=== PATIENT | female | born 1945 | race Caucasian/White ===

== ENCOUNTER → 2017-07-09 | Outpatient (CLI) | payer MEDICARE, OTHER ==
--- NOTE | 2017-07-09 13:49 | MM ---
Reason for exam: screening (asymptomatic). Last mammogram was performed 2 years and 2 months ago. History: Patient is postmenopausal. Family history of breast cancer in maternal aunt at age 70. Physical Findings: A clinical breast exam by your physician is recommended on an annual basis and results should be correlated with mammographic findings. MG 3D Screening Mammo W/Cad Bilateral CC and MLO view(s) were taken. Prior study comparison: April 27, 2015, bilateral MG screening mammo w CAD. July 21, 2013, bilateral digital screening mammo w/CAD. There are scattered fibroglandular densities. Finding: There are typically benign vascular calcifications in both breasts. There is no discrete abnormality. ASSESSMENT: Negative, BI-RAD 1 RECOMMENDATION: Routine screening mammogram of both breasts in 1 year.
== END | disposition home or self-care (01) ==
LOC: RADMAMWWP 09:29
PROVIDERS: ATTEND Obstetrics & Gynecology
DX: Z12.31 Encounter for screening mammogram for malignant neoplasm of breast (principal)
CPT/HCPCS: 77063; G0202

== ENCOUNTER 2019-12-22 17:20 | Inpatient (IN) | payer MEDICARE, OTHER ==
[2019-12-22] MEDS ORDERED: NALOXONE 0.4 MG/ML 1 ML VIAL IV PRN (19:30)
[2019-12-22] MEDS ORDERED: HYDROcodone/APAP 5-325MG 1 EACH TAB PO PRN (19:31)
[2019-12-22] MEDS ORDERED: HYDROmorphone 0.5 MG/0.5 ML SYRINGE IVP PRN (19:31)
[2019-12-22] MEDS ORDERED: ONDANSETRON 4 MG/2 ML VIAL IVP PRN (19:31)
[2019-12-22] MEDS ORDERED: ACETAMINOPHEN TAB 500 MG TAB PO PRN (19:31)
[2019-12-22] MEDS ORDERED: ALPRAZolam 0.25 MG TAB PO PRN (19:31)
[2019-12-22] MEDS ORDERED: TEMAZEPAM 15 MG CAP PO PRN (19:31)
[2019-12-22 20:12] LABS: Anisocytosis Slight; Basophils % (A) 0 %; Eosinophils # (A) 0.2 k/uL (0-0.7); Eosinophils % (A) 3 %; HCT 28.3 % (34.0-46.0); HGB 9.2 gm/dL (11.4-16.0); Lymphocytes # (A) 1.4 k/uL (1.0-4.8); Lymphocytes % (A) 22 %; MCH 29.1 pg (25.0-35.0); MCHC 32.5 g/dL (31.0-37.0); MCV 89.6 fL (80.0-100.0); Monocytes # (A) 0.5 k/uL (0-1.0); Monocytes % (A) 8 %; Neutrophils # (A) 4.3 k/uL (1.3-7.7); Neutrophils % (A) 64 %; Platelet Count 295 k/uL (150-450); RBC 3.15 m/uL (3.80-5.40); RDW 16.8 % (11.5-15.5); WBC 6.7 k/uL (3.8-10.6)
[2019-12-22 20:23] LABS: ALT 28 U/L (4-34); AST 29 U/L (14-36); African American GFR (CKD) >90 (>60 ml/min/1.73 sqM); Albumin 3.8 g/dL (3.5-5.0); Alkaline Phosphatase 77 U/L (38-126); Anion Gap 7 mmol/L; Blood Urea Nitrogen 10 mg/dL (7-17); Calcium 8.7 mg/dL (8.4-10.2); Carbon Dioxide 29 mmol/L (22-30); Chloride 101 mmol/L (98-107); Glucose 95 mg/dL (74-99); Magnesium 1.9 mg/dL (1.6-2.3); Non-African American GFR(CKD) 89 (>60 ml/min/1.73 sqM); Phosphorus 3.8 mg/dL (2.5-4.5); Potassium 3.6 mmol/L (3.5-5.1); Sodium 137 mmol/L (137-145); Total Bilirubin 0.3 mg/dL (0.2-1.3); Total Protein 6.5 g/dL (6.3-8.2)
[2019-12-22] MEDS: SODIUM CHLORIDE 0.9% 1,000 ML IV SCH (20:43)
[2019-12-22] MEDS: PANTOPRAZOLE 40 MG/10 ML VIAL IVP SCH (20:43)
[2019-12-22 21:18] LABS: Appearance,Urine Clear (Clear); Bilirubin,Urine Negative (Negative); Blood,Urine Negative (Negative); Color,Urine Light Yellow; Glucose,Urine (UA) Negative (Negative); Ketones,Urine Trace (Negative); Leukocyte Esterase,Urine Negative (Negative); Nitrite,Urine Negative (Negative); PH, Urine 7.5 (5.0-8.0); Protein,Urine Negative (Negative); Specific Gravity,Urine 1.036 (1.001-1.035); Urobilinogen,Urine <2.0 mg/dL (<2.0)
--- NOTE | 2019-12-22 21:35 | XR ---
EXAMINATION TYPE: XR chest 1V portable DATE OF EXAM: 12/22/2019 COMPARISON: NONE HISTORY: Short of breath TECHNIQUE: Single view FINDINGS: There is no heart failure nor confluent pneumonic infiltrate. There are old right-sided rib fractures. Costophrenic angles are clear. Thoracic aorta is atheromatous. IMPRESSION: No active cardiopulmonary disease. No heart failure seen.
--- NOTE | 2019-12-22 22:11 | HP ---
HISTORY AND PHYSICAL CHIEF COMPLAINTS: Diarrhea and history of lower GI bleed. HISTORY OF PRESENT ILLNESS: This 73-year-old woman with a past medical history of multiple medical problems, including hypertension, history of right bundle branch block, history of colonoscopy, cataract surgery, being followed by Dr. Pradeep Biggs in the outpatient setting, was not feeling well since Sunday. The patient initially had abdominal discomfort and a feeling of nausea. The patient subsequently had diarrhea. Multiple episodes blood was noted. The patient previously had a diagnosis of diverticulosis and the patient thought this was diverticulosis and did not come to the hospital. The patient was checked by the doctor today, and because of lack of improvement, the patient was sent to [facility] emergency room and subsequently the patient was directly transferred to [facility] for further evaluation and treatment. The patient apparently had come to [place] for her daughter's doctor's appointment recently. The patient also had a persistent nasal discharge for the last one year, according to her. Not much cough or fever is reported. No history of any recent travel contact or any contact with disease. The patient also reports that she has taken Excedrin anywhere from 2 to 4 tablets per day almost every day for the last several years. The patient also had a CT scan of the abdomen and pelvis in [place] that showed colonic diverticulosis without any evidence of diverticulitis, normal appendix, hepatic steatosis and mural thickening involving the proximal part of the duodenum. Left renal poorly defined hypodensity was also noted. Hemoglobin was 8.8 in [place]. PAST MEDICAL HISTORY: History of hypertension, history of right bundle branch block, headaches. MEDICATIONS: 1. Aspirin 81 mg daily. 2. Calcium with vitamin D. 3. Coenzyme Q10 4. Fish oil. 5. Hydrochlorothiazide 12.5 mg daily. 6. Calcium. 7. Lipitor 20 mg. 8. Magnesium. 9. Nifedipine 90 mg. 10.Propranolol 40 mg. 11.Turmeric. 12.Vitamin B complex. 13.Vitamin C. 14.Vitamin D D3. ALLERGIES: UNKNOWN. FAMILY HISTORY: History of hypertension, malignant tumor of the breast in the family. Malignant tumor of the lung in brother. SOCIAL HISTORY: No history of alcohol and smoking. REVIEW OF SYSTEMS: ENT: As mentioned earlier. CARDIOVASCULAR SYSTEM: No angina, palpitations. RESPIRATORY SYSTEM: As mentioned earlier. GI: As mentioned earlier. : No dysuria or retention. NERVOUS SYSTEM: No numbness, weakness. ALLERGY/IMMUNOLOGY: No asthma, hayfever. MUSCULOSKELETAL: As mentioned earlier. HEMATOLOGY/ONCOLOGY: No history of anemia. ENDOCRINE: No history of diabetes, hypothyroidism. CONSTITUTIONAL: As mentioned earlier. DERMATOLOGY: Negative. RHEUMATOLOGY: Negative. PSYCHIATRY: As mentioned earlier. PHYSICAL EXAMINATION: Patient alert and oriented x3. Pulse is 80, blood pressure 120/80, respiration 20, temperature normal. HEENT: Conjunctivae normal. NECK: No jugular venous distention. CARDIOVASCULAR SYSTEM: S1, S2 muffled. RESPIRATORY SYSTEM: Breath sounds diminished at the bases. A few scattered rhonchi. No crackles. ABDOMEN: Soft, obese. Mild diffuse discomfort. No guarding. No rigidity. No mass palpable. No ascites. LEGS: No edema. No swelling. NERVOUS SYSTEM: Higher functions as mentioned earlier. Moves all 4 limbs. No focal motor or sensory deficit. LYMPHATICS: No lymph node palpable in neck, axillae or groin. SKIN: No ulcer, rash, bleeding. JOINTS: No active deforming arthropathy. LABS: Labs are pending at this time. ASSESSMENT: 1. Possible upper gastrointestinal bleeding with peptic ulcer disease bleeding and acute blood loss anemia. 2. History of hypertension. 3. Right bundle branch block on EKG. 4. Colonic diverticulosis without any diverticulitis on the CT scan. 5. Headaches; taking Excedrin. 6. History of mural thickening of the duodenum. 7. Left renal poorly defined cortical hypodensity. RECOMMENDATIONS AND DISCUSSION: In this 73-year-old woman who presented with multiple complex medical issues, we will monitor the patient closely, continue the current medications, continue with symptomatic treatment. Keep the patient n.p.o. except medications. Will obtain gastroenterology evaluation for possible endoscopy, both upper and lower. If Doppler does not show any acute finding, the possibility of peptic ulcer disease is high on the list. I would also recommend serial H&H and if the hemoglobin is less than 7, I would recommend a unit of transfusion with Lasix 40 mg after the blood transfusion. Otherwise, we will use proton pump inhibitors. Monitor blood pressure closely. Prognosis guarded because of multiple complex medical issues. Further recommendations to follow. A copy of this dictation is being forwarded to Dr. Pradeep Biggs, who is following the patient in the outpatient setting. MMODL / IJN: [id number] / MTDD
[2019-12-23 07:58] LABS: Anisocytosis Slight; Basophils % (A) 1 %; Eosinophils # (A) 0.2 k/uL (0-0.7); Eosinophils % (A) 4 %; HGB 10.1 gm/dL (11.4-16.0); Lymphocytes # (A) 0.9 k/uL (1.0-4.8); Lymphocytes % (A) 18 %; MCH 29.1 pg (25.0-35.0); MCHC 32.4 g/dL (31.0-37.0); MCV 89.8 fL (80.0-100.0); Mean Platelet Volume 8.2; Monocytes # (A) 0.4 k/uL (0-1.0); Monocytes % (A) 8 %; Neutrophils # (A) 3.3 k/uL (1.3-7.7); Neutrophils % (A) 66 %; Platelet Count 270 k/uL (150-450); RBC 3.45 m/uL (3.80-5.40); RDW 16.3 % (11.5-15.5)
[2019-12-23 08:04] LABS: African American GFR (CKD) >90 (>60 ml/min/1.73 sqM); Anion Gap 7 mmol/L; Blood Urea Nitrogen 10 mg/dL (7-17); Calcium 8.4 mg/dL (8.4-10.2); Carbon Dioxide 26 mmol/L (22-30); Chloride 106 mmol/L (98-107); Glucose 90 mg/dL (74-99); Non-African American GFR(CKD) 88 (>60 ml/min/1.73 sqM); Potassium 3.6 mmol/L (3.5-5.1); Sodium 139 mmol/L (137-145)
[2019-12-23] MEDS: PANTOPRAZOLE 40 MG/10 ML VIAL IVP SCH ×2 (08:27→20:04)
--- NOTE | 2019-12-23 13:46 | CONS ---
CONSULTATION DATE OF DICTATION: 12/23/2019 The patient is a 73-year-old pleasant white female admitted to hospital with diarrhea and lower abdominal pain for the last one week duration. The patient's symptoms began a week ago on Sunday. She started having severe cramping, lower abdominal pain followed by rectal bleeding. She had one day when she had about 4 or 5 episodes of bright red blood per rectum and the next day, the bleeding subsided, but continued to have persistent lower abdominal pain and soft bowel movements. She called her PCP and made an appointment and was seen in the office this Sunday and yesterday when she was evaluated, she had severe tenderness in the lower abdominal area and hence was advised to go to the emergency room at [facility] and subsequently transferred to [facility]. In the meantime, she continues to have persistent lower abdominal pain. Bleeding has completely resolved. Still had one or two soft bowel movements daily. No nausea or vomiting. She also complains of epigastric pain. Her last colonoscopy done by me was several years ago. She had a CT of the abdomen and pelvis done in [facility] that showed colonic diverticulosis, but no evidence of diverticulitis or colitis. PAST MEDICAL HISTORY: Her past medical history is significant for hypertension, hypercholesteremia, chronic headaches. MEDICATIONS AT HOME: Aspirin, calcium, coenzyme, fish oil, hydrochlorothiazide, Lipitor, magnesium, nifedipine, propranolol, tumeric, vitamin B, C and D. ALLERGIES: None. SOCIAL HISTORY: No smoking or alcohol use. FAMILY HISTORY: Mom had breast cancer. Brother had lung cancer. REVIEW OF SYSTEMS: CARDIOPULMONARY: She denies any chest pain or shortness of breath. GENITOURINARY: No dysuria or hematuria. MUSCULOSKELETAL: Unremarkable. SKIN: Unremarkable. ENDOCRINE: Unremarkable. PSYCHIATRIC: Unremarkable. NEUROLOGY: Unremarkable. ENT/VISION: Unremarkable. GI: As mentioned above. HEMATOLOGY: Unremarkable. PHYSICAL EXAMINATION: On physical examination, she appears comfortable. No apparent distress. Vital signs are stable. Blood pressure is 130/86, pulse rate 71 per minute, temperature 98.2. HEENT: Examination is unremarkable. Conjunctivae pink. Sclerae anicteric. Oral cavity, no lesions. NECK: No JVD or lymph node enlargement. CHEST: Clear to auscultation. HEART: Regular rate and rhythm. ABDOMEN: Soft. Bowel sounds are positive. There was mild tenderness in the left lower quadrant area as well as in the suprapubic area. Mild tenderness in the epigastric area. Bowel sounds are positive. No organomegaly. EXTREMITIES: No pedal edema. SKIN: No rashes. NEURO: She is alert and oriented x3. No focal deficits. LABS: Labs done at the time of admission to the hospital yesterday WBC 6.7, hemoglobin 9.2, platelets are normal. Basic metabolic panel is within normal limits. She did receive one unit of blood transfusion in [place] yesterday. IMPRESSION: This is a lady who presented to the hospital with severe lower abdominal pain for the last one week duration and had rectal bleeding at the onset of symptoms about a week ago that lasted for 2 days. Now the bleeding has subsided, but she continues to have persistent lower abdominal pain and epigastric pain associated with some nausea but no emesis. Hemoglobin was low and received one unit of blood transfusion at [facility]. Today hemoglobin is 9.2 g/dL. CT scan done in the ER at [place] showed diverticulosis but no evidence of diverticulitis. Her last colonoscopy was several years ago. At this time possibility of diverticular bleed versus upper gastrointestinal bleed cannot be excluded. RECOMMENDATIONS: 1. We will proceed with EGD and colonoscopy tomorrow. 2. In the meantime, monitor her CBC closely. 3. Obtain stool studies to rule out infectious colitis. 4. We will follow with you closely. Thank you for this consultation. MMODL / IJN: [id number] /
[2019-12-23 14:21] LABS: Anisocytosis Slight; Basophils % (A) 1 %; Eosinophils # (A) 0.2 k/uL (0-0.7); Eosinophils % (A) 3 %; HCT 31.6 % (34.0-46.0); HGB 10.1 gm/dL (11.4-16.0); Lymphocytes # (A) 0.8 k/uL (1.0-4.8); Lymphocytes % (A) 17 %; MCH 28.8 pg (25.0-35.0); Mean Platelet Volume 7.9; Monocytes # (A) 0.3 k/uL (0-1.0); Monocytes % (A) 5 %; Neutrophils # (A) 3.5 k/uL (1.3-7.7); Neutrophils % (A) 73 %; Platelet Count 270 k/uL (150-450); RBC 3.51 m/uL (3.80-5.40); RDW 16.4 % (11.5-15.5); WBC 4.8 k/uL (3.8-10.6)
[2019-12-23] MEDS: SODIUM CHLORIDE 0.9% 1,000 ML IV SCH (14:42)
[2019-12-23] MEDS ORDERED: PEG 3350-NA SULF,BICARB,CL/KCL 4,000 ML BOTTLE PO ONE (16:00)
[2019-12-23] MEDS: NIFEdipine XL 90 MG TAB.ER.24 PO SCH (16:34)
--- NOTE | 2019-12-23 18:22 | PN ---
PROGRESS NOTE DATE OF SERVICE: 12/23/2019 This 73-year-old woman was admitted, referred from [facility] with diarrhea as well as melenic stools. Patient also had upper GI symptoms. The patient is currently taking Excedrin in large quantities for relief of headache. Her hemoglobin yesterday was low at 8.7. The patient was transfused one unit. Today's hemoglobin is 10.1. Dr. Ramos is following the patient for possible endoscopy. Influenza negative. Past medical history reviewed. REVIEW OF SYSTEMS: CARDIOVASCULAR SYSTEM: No angina, palpitations. RESPIRATORY SYSTEM: As mentioned earlier. GI: As mentioned earlier. : No dysuria or retention. NERVOUS SYSTEM: No numbness, weakness. CURRENT MEDICATIONS: Reviewed. They include: 1. Tylenol p.r.n. 2. [place] 5 mg q.6 p.r.n. 3. Xanax 0.25 t.i.d. 4. Dilaudid 0.5 q.6 p.r.n. 5. Narcan 0.2 q.2 p.r.n. 6. Zofran 4 mg q.6. 7. Protonix 40 mg. 8. Restoril 15 mg at bedtime p.r.n. PHYSICAL EXAMINATION: Patient is alert, oriented x3. Pulse 58, blood pressure 107/58, respirations 16, temperature 97.8, pulse ox 94% on room air. HEENT: Conjunctivae normal. Oral mucosa moist. NECK: No jugular venous distention. No carotid bruit. No lymph node enlargement. CARDIOVASCULAR SYSTEM: S1, S2 muffled. No S3. No S4. RESPIRATORY SYSTEM: Breath sounds diminished at the bases. A few scattered rhonchi and crackles. Expiratory wheezing also present. ABDOMEN: Soft, non-tender. No mass palpable. LEGS: No edema. No swelling. NERVOUS SYSTEM: Higher functions as mentioned earlier. Moves all 4 limbs. No focal motor or sensory deficit. LYMPHATICS: No lymph node palpable in neck, axillae or groin. SKIN: No ulcer, rash, bleeding. JOINTS: No active deforming arthropathy. LABS: WBC 4.8, hemoglobin 10.1. UA noted. ASSESSMENT: 1. Possible upper gastrointestinal bleeding with peptic ulcer disease with acute blood loss anemia, status post transfusion. 2. History of hypertension. 3. Rule out other gastrointestinal source of bleeding. 4. Right bundle branch block on EKG. 5. Chronic diverticulosis without any evidence of diverticulitis on the CT scan. 6. Headaches; taking Excedrin. 7. History of mural thickening of the duodenum on the CT scan. 8. Left renal poorly defined cortical hypodensity; needs to be followed up in the outpatient setting. 9. Obesity with body mass index of 33.4. 10.FULL CODE. RECOMMENDATIONS AND DISCUSSION: In this 73-year-old woman who presented with multiple complex medical issues, we will monitor the patient closely, continue the current medications, continue symptomatic treatment, continue with the proton pump inhibitors. Consult GI. Discussed with Dr. Ramos. Possible EGD, colonoscopy. Hold Further recommendations to follow. MMODL / IJN: [id number] / MTDMarisa
[2019-12-23] MEDS: PROPRANOLOL 40 MG TAB PO SCH (20:04)
[2019-12-24] MEDS: SODIUM CHLORIDE 0.9% 1,000 ML IV SCH ×2 (01:25→15:24)
[2019-12-24 08:08] LABS: Anisocytosis Slight; Basophils # (A) 0.1 k/uL (0-0.2); Basophils % (A) 1 %; Eosinophils # (A) 0.2 k/uL (0-0.7); Eosinophils % (A) 4 %; HCT 31.4 % (34.0-46.0); Hypochromasia Slight; Lymphocytes # (A) 0.8 k/uL (1.0-4.8); Lymphocytes % (A) 16 %; MCH 28.7 pg (25.0-35.0); MCV 89.8 fL (80.0-100.0); Mean Platelet Volume 7.8; Monocytes # (A) 0.5 k/uL (0-1.0); Monocytes % (A) 9 %; Neutrophils # (A) 3.4 k/uL (1.3-7.7); Neutrophils % (A) 67 %; Platelet Count 267 k/uL (150-450); RBC 3.49 m/uL (3.80-5.40); RDW 16.2 % (11.5-15.5); WBC 5.1 k/uL (3.8-10.6)
[2019-12-24 08:26] LABS: African American GFR (CKD) >90 (>60 ml/min/1.73 sqM); Anion Gap 3 mmol/L; Blood Urea Nitrogen 7 mg/dL (7-17); Calcium 8.7 mg/dL (8.4-10.2); Carbon Dioxide 30 mmol/L (22-30); Chloride 107 mmol/L (98-107); Glucose 87 mg/dL (74-99); Non-African American GFR(CKD) 88 (>60 ml/min/1.73 sqM); Potassium 4.5 mmol/L (3.5-5.1); Sodium 140 mmol/L (137-145)
[2019-12-24] MEDS: PANTOPRAZOLE 40 MG/10 ML VIAL IVP SCH ×2 (08:47→20:17)
[2019-12-24] MEDS: PROPRANOLOL 40 MG TAB PO SCH ×2 (08:48→20:17)
[2019-12-24] MEDS: HYDROCHLOROTHIAZIDE 25 MG TAB PO SCH (08:48)
[2019-12-24] MEDS: NIFEdipine XL 90 MG TAB.ER.24 PO SCH (08:49)
[2019-12-24] MEDS ORDERED: IV FLUID CONTINUATION 1,000 ML IV ONE (09:17)
[2019-12-24] MEDS ORDERED: PROPOFOL 10 MG/ML 20 ML VIAL IV ONE (09:18)
[2019-12-24] MEDS ORDERED: fentaNYL (PF) 50 MCG/ML 2 ML AMP ONE (09:18)
[2019-12-24] MEDS ORDERED: MIDAZOLAM 2 MG/2 ML VIAL ONE (09:18)
--- NOTE | 2019-12-24 09:46 | P.PCN ---
Date of Procedure: 12/24/19 Procedure(s) Performed: Brief history: Patient is a pleasant 71-year-old white female transferred from the hospital with lower abdominal pain for the last week duration associated with rectal bleeding. She had significant bleeding for 2 days' and since then has been having loose bowel movements. CT of abdomen showed evidence of diverticulosis. Hemoglobin was 8 g/dL and hence was given 1 unit of blood transfusion. Last hemoglobin is is 10 g/dL. She is scheduled for an upper endoscopy as well as colonoscopy to evaluate further Procedure performed: Esophagogastroduodenoscopy with biopsy Colonoscopy Preoperative diagnosis: Abdominal pain/rectal bleeding and anemia Anesthesia: [facility] Procedure: After informed consent was obtained from the patient was brought into the endoscopy unit and IV sedation was administered by anesthesia under continuous monitoring. Initially upper endoscopy was done. The Olympus GF 160 video endoscope was inserted inserted into the mouth and esophagus intubated without any difficulty and was gradually advanced into the stomach and duodenum and carefully examined. The bulb and second part of the duodenum revealed 2 ulcerations measuring 1 cm and 2 cm with a clean base with surrounding duodenitis and biopsies were done from this area. The scope was then withdrawn into the stomach adequately insufflated with air and upon careful examination the antrum had multiple scattered erosions consistent with gastritis and biopsies were done from this area. The body, cardia and fundus appeared normal. The scope was then withdrawn into the esophagus. The GE junction was located at 40 cm to the incisors. It appeared regular with no erythema erosions or ulcerations. Rest of the esophagus appeared normal. Patient tolerated the procedure well. At this time the patient continued to remain sedation. Initial digital rectal examination was normal. Olympus CF 160 video colonoscope was then inserted into the rectum and could not be advanced beyond the sigmoid colon. Scope was removed and a pediatric colonoscopy into the rectum and gradually advanced to the cecum without any difficulty. Careful examination was performed as the scope was gradually being withdrawn. The prep was excellent. The cecum, ascending colon, transverse colon, descending colon, sigmoid colon and rectum appeared normal. Retroflexion was performed in the rectum and small internal hemorrhoids were noted. Scattered sigmoid diverticulosis seen. Patient tolerated the procedure well. Impression: 1. Upper endoscopy revealed 2 duodenal bulbar ulcers measuring 1 cm and 2 cm with a clean base and no active bleeding with surrounding duodenitis. Antral erosive gastritis, status post biopsy 2. Colonoscopy revealed scattered sigmoid diverticulosis and small internal hemorrhoids Recommendations: Findings of this examination were discussed with the patient. She will continue with Protonix 40 mg twice daily and avoid NSAIDs. Diet will be advanced as tolerated. She can be discharged home today or tomorrow and outpatient follow- up in 2 weeks.
--- NOTE | 2019-12-24 13:46 | P.PN ---
Subjective This is a pleasant 73 result female with past medical history of hypertension and hyperlipidemia and diverticulitis. Presents with signs symptoms of GI bleed, patient underwent EGD/colonoscopy this showing to duodenal ulcer about 1 cm with surrounding duodenitis and acute erosive gastritis Patient today is not in distress, she still have loose bowel movement, possibly from bowel preparation Objective - Vital Signs Vital signs: Vital Signs Temp 97.9 F 12/24/19 12:03 Pulse 65 12/24/19 12:03 Resp 17 12/24/19 12:03 BP 118/75 12/24/19 12:03 Pulse Ox 96 12/24/19 12:03 Intake & Output 12/23/19 12/24/19 12/24/19 18:59 06:59 18:59 Intake Total 600 300 Output Total 3 Balance 600 -3 300 Intake: IV 300 Intake, IV Titration 600 Amount Sodium Chloride 0.9% 1, 600 000 ml @ 75 mls/hr IV . [id number] SCOTT Rx#:[id number] Output: Stool 3 Other: Voiding Method Toilet Toilet Bedside Commode Bedside Commode # Voids 4 2 # Bowel Movements 6 - Exam GENERAL: The patient is alert and oriented x3, not in any acute distress. Well developed, well nourished. HEENT: Pupils are round and equally reacting to light. EOMI. No scleral icterus. No conjunctival pallor. Normocephalic, atraumatic. No pharyngeal erythema. No thyromegaly. CARDIOVASCULAR: S1 and S2 present. No murmurs, rubs, or gallops. PULMONARY: Chest is clear to auscultation, no wheezing or crackles. ABDOMEN: Soft, nontender, nondistended, normoactive bowel sounds. No palpable organomegaly. MUSCULOSKELETAL: No joint swelling or deformity. EXTREMITIES: No cyanosis, clubbing, or pedal edema. NEUROLOGICAL: Gross neurological examination did not reveal any focal deficits. SKIN: No rashes. no petechiae. - Labs CBC & Chem 7: 12/24/19 07:29 12/24/19 07:29 Labs: Abnormal Lab Results - Last 24 Hours (Table) 12/23/19 12/23/19 12/24/19 Range/Units 14:05 20:55 07:29 RBC 3.51 L 3.49 L (3.80-5.40) m/uL Hgb 10.1 L 10.0 L (11.4-16.0) gm/dL Hct 31.6 L 31.4 L (34.0-46.0) % RDW 16.4 H 16.2 H (11.5-15.5) % Lymphocytes # 0.8 L 0.8 L (1.0-4.8) k/uL Stool Lactoferrin POSITIVE H (NEGATIVE) Microbiology - Last 24 Hours (Table) 12/23/19 20:55 Stool Culture - Preliminary Stool Assessment and Plan Assessment: Acute GI bleed Acute blood loss anemia Duodenal ulcers about 1 cm in diameter, 2 with surrounding duodenitis Acute erosive gastritis Hypertension Hyperlipidemia Plan: this is a pleasant 73 years old female who presents with diarrhea and possible GI bleed secondary to DU, continue with Protonix, follow-up biopsy results with GI team. Follow-up accommodation by real estate consultant. Monitor bowel movement Labs and medication were reviewed.. Continue same treatment. Continue with symptomatic treatment. Resume home medication. Monitor lytes and vitals. DVT and GI prophylaxis. Further recommendations of the clinical course of the patient DVT prophylaxis: Subcutaneous no heparin in view of GI bleed GI Prophylaxis: Ppi Prognosis is guarded
[2019-12-25] MEDS: SODIUM CHLORIDE 0.9% 1,000 ML IV SCH (05:06)
[2019-12-25 08:44] LABS: African American GFR (CKD) >90 (>60 ml/min/1.73 sqM); Anion Gap 5 mmol/L; Blood Urea Nitrogen 9 mg/dL (7-17); Calcium 8.6 mg/dL (8.4-10.2); Carbon Dioxide 29 mmol/L (22-30); Chloride 105 mmol/L (98-107); Glucose 128 mg/dL (74-99); Non-African American GFR(CKD) 85 (>60 ml/min/1.73 sqM); Potassium 3.5 mmol/L (3.5-5.1); Sodium 139 mmol/L (137-145)
[2019-12-25] MEDS: NIFEdipine XL 90 MG TAB.ER.24 PO SCH (08:54)
[2019-12-25] MEDS: HYDROCHLOROTHIAZIDE 25 MG TAB PO SCH (08:54)
[2019-12-25] MEDS: PANTOPRAZOLE 40 MG/10 ML VIAL IVP SCH (08:54)
[2019-12-25] MEDS: PROPRANOLOL 40 MG TAB PO SCH (08:54)
--- NOTE | 2019-12-25 11:07 | P.DS ---
Providers Date of admission: 12/22/19 19:15 Attending physician: Lori Fonseca Consults: 12/22/19 19:31 Consult Physician Routine Consulting Provider: Dorothy Ramos Consult Reason/Comments: gi blles Do you want consulting provider notified?: Yes Primary care physician: Pradeep Biggs [facility] Course: Diagnoses: Acute GI bleed Acute blood loss anemia Duodenal ulcers about 1 cm in diameter, 2 with surrounding duodenitis Acute erosive gastritis Hypertension Hyperlipidemia Hospital course: This is a pleasant 73 result female with past medical history of hypertension and hyperlipidemia and diverticulitis. Presents with signs symptoms of GI bleed, patient underwent EGD/colonoscopy this showing to duodenal ulcer about 1 cm with surrounding duodenitis and acute erosive gastritis Patient today is not in distress, loose bowel movement has stopped, patient did not have bowel movement since yesterday, no diarrhea, no abdominal pain, no nausea vomiting, patient is tolerating diet well Patient was cleared for discharge by GI team Problems and management plan were discussed with the patient and he verbalized understanding and acceptance Patient was found stable and can be discharged home however he needs follow-up as an outpatient. Patient was instructed to follow up with PCP within one week and patient agrees. Patient agrees with the appointments made for her with her PCP Dr. Fernández on 01/[address] Ramos on 01/11, patient was instructed to follow up of biopsy results and risks including but not limited to cancer are explained to her and she agrees Gen: patient is a AAOx3, no distress CVS: S1-S2, RRR, no murmur Lungs: B/L CTA, no wheezing Abdomen: soft, no distention, no tenderness, positive bowel sounds Extremity: no leg edema or induration Time spent more than 35 minutes Plan - Discharge Summary Discharge Rx Participant: Yes New Discharge Prescriptions: No Action Turmeric Root Extract [Turmeric] 500 mg PO HS Calcium/Magnesium/Zinc [Cqkkefo-Nnkgipbzn-Wufk Tablet] 1 tab PO DAILY Black Seed Oil 650mg 650 mg PO DAILY Atorvastatin [Lipitor] 20 mg PO DAILY Propranolol [Inderal] 40 mg PO BID [place]-3 Fatty Acids/Fish Oil [Fish Oil 1,000 mg Softgel] 1 cap PO HS NIFEdipine [Procardia XL] 90 mg PO DAILY Multivitamins, Thera [Multivitamin (formulary)] 1 tab PO DAILY Hydrochlorothiazide [Hydrodiuril] 12.5 mg PO DAILY Vitamin B Complex 1 cap PO DAILY Ubidecarenone [Co Q-10] 200 mg PO HS Iron 27mg 27 mg PO HS Aspirin EC [Ecotrin Low Dose] 81 mg PO HS Discharge Medication List Aspirin EC [Ecotrin Low Dose] 81 mg PO HS 12/22/19 [History] Atorvastatin [Lipitor] 20 mg PO DAILY 12/22/19 [History] Black Seed Oil 650mg 650 mg PO DAILY 12/22/19 [History] Calcium/Magnesium/Zinc [Nftqtwt-Hjgndyqhu-Zcjl Tablet] 1 tab PO DAILY 12/22/19 [History] Hydrochlorothiazide [Hydrodiuril] 12.5 mg PO DAILY 12/22/19 [History] Iron 27mg 27 mg PO HS 12/22/19 [History] Multivitamins, Thera [Multivitamin (formulary)] 1 tab PO DAILY 12/22/19 [History] NIFEdipine [Procardia XL] 90 mg PO DAILY 12/22/19 [History] [place]-3 Fatty Acids/Fish Oil [Fish Oil 1,000 mg Softgel] 1 cap PO HS 12/22/19 [History] Propranolol [Inderal] 40 mg PO BID 12/22/19 [History] Turmeric Root Extract [Turmeric] 500 mg PO HS 12/22/19 [History] Ubidecarenone [Co Q-10] 200 mg PO HS 12/22/19 [History] Vitamin B Complex 1 cap PO DAILY 12/22/19 [History] Follow up Appointment(s)/Referral(s): Pradeep Biggs NPC [Primary Care Provider] - 01/05/20 2:30 pm Dorothy Ramos MD [STAFF PHYSICIAN] - 01/12/20 1:00 pm ()
[2019-12-25 11:30] VITALS: BP 130/79; PULSE 57; RESP 16; TEMP 97.9
== END 2019-12-25 12:09 | disposition home or self-care (01) | DRG 378 ==
LOC: 5NMEDONC 19:15
PROVIDERS: ADMIT Internal Medicine; ATTEND Internal Medicine
PROC: 30233N1 Transfusion of Nonautologous Red Blood Cells into Peripheral Vein, Percutaneous Approach (ICD-10-PCS; 2019-12-24)
PROC: 0DJD8ZZ Inspection of Lower Intestinal Tract, Via Natural or Artificial Opening Endoscopic (ICD-10-PCS; principal; 2019-12-24 09:00)
PROC: 0DB68ZX Excision of Stomach, Via Natural or Artificial Opening Endoscopic, Diagnostic (ICD-10-PCS; principal; 2019-12-24 09:00)
PROC: 0DB98ZX Excision of Duodenum, Via Natural or Artificial Opening Endoscopic, Diagnostic (ICD-10-PCS; principal; 2019-12-24 09:00)
DX: K26.4 Chronic or unspecified duodenal ulcer with hemorrhage (principal); D62 Acute posthemorrhagic anemia; K29.01 Acute gastritis with bleeding; I10 Essential (primary) hypertension; I45.10 Unspecified right bundle-branch block; E78.5 Hyperlipidemia, unspecified; R51 Headache; E78.00 Pure hypercholesterolemia, unspecified; K57.33 Diverticulitis of large intestine without perforation or abscess with bleeding; E66.9 Obesity, unspecified; K29.81 Duodenitis with bleeding; K64.8 Other hemorrhoids; Z68.33 Body mass index [BMI] 33.0-33.9, adult; Z82.49 Family history of ischemic heart disease and other diseases of the circulatory system; Z80.3 Family history of malignant neoplasm of breast; Z80.1 Family history of malignant neoplasm of trachea, bronchus and lung
CPT/HCPCS: 43239; 71045; 80048; 80053; 81003; 83630; 83735; 84100; 84145; 85025; 86850; 86900; 86901; 86920; 87045; 87046; 87324; 87502; 87634; 88305; 93005

== ENCOUNTER → 2025-01-29 | Day surgery (SDC) | payer MEDICARE, OTHER ==
--- NOTE | 2025-02-05 12:12 | MM ---
Reason for Exam: Post Procedure Mammogram. Last screening mammogram was performed less than 1 month ago. Patient History: Menarche at age 13. First Full-Term at age 24. Left ovary removed at age 54. Right ovary removed at age 54. Hysterectomy at age 54. Postmenopausal. Maternal aunt had breast cancer, age 70. Risk Values: Marivel 5 year model risk: 1.5%. NCI Lifetime model risk: 2.8%. Prior Study Comparison: 12/13/1995 Screening Mammogram, Unknown. 07/21/2013 Bilateral Screening Mammogram, [facility]. 04/27/2015 Bilateral Screening Mammogram, [facility]. 07/09/2017 Bilateral Screening Mammogram, [facility]. Tissue Density: Left: There are scattered areas of fibroglandular density. Pathology Description: Location: 1 o'clock. Marker Left Behind. Needle Type: Celero Cores: 5 Gauge: 12 The procedure of ultrasound guided core biopsy was explained to the patient. Benefits, alternatives, and risks were discussed. An informed consent was then obtained. The patient was placed in supine positioning for imaging and for the procedure. The overlying skin was prepped and draped in usual sterile fashion. Lidocaine buffered with bicarbonate was used as anesthetic into the skin and subcutaneous tissue up to area of concern in the left 1:00 breast. A sunita was made with surgical scalpel. Under ultrasound guidance, a 12-gauge vacuum assisted biopsy gun device was used to obtain 5 core samples. Following this, a biopsy clip was left in lesion. The patient tolerated the procedure well without any immediate complication. The patient was kept in the radiology department for short stay after the procedure and then discharged home in stable condition. Postprocedure mammogram: The patient was transferred to mammography for physician ordered post procedure mammogram for clip placement verification. Post procedure mammogram demonstrates the clip in appropriate placement. Impression: Successful, uncomplicated ultrasound guided core biopsy of area of concern in the left 1:00 breast, full pathology results to follow. Pathology Results: Result: Malignant, Invasive ductal carcinoma. Pathology and radiology were reviewed. Findings are concordant. LEFT BREAST, ONE O'CLOCK, ULTRASOUND GUIDED NEEDLE CORE BIOPSY: Invasive moderately differentiated ductal carcinoma (Grade 2). See Surgical Pathology Cancer Case Summary. Overall Assessment: Malignant Assessment: MG diagnostic mammo LT wo CAD. - Left: Known biopsy proven malignancy, BI-RAD 6. Management: Surgical Consultation of the left breast. Electronically signed and approved by: Robert Naranjo M.D. Radiologis
== END ==
LOC: RADUSWWP 11:58
PROVIDERS: ATTEND Surgery
DX: C50.912 Malignant neoplasm of unspecified site of left female breast (principal); R92.8 Other abnormal and inconclusive findings on diagnostic imaging of breast; Z78.0 Asymptomatic menopausal state; Z80.3 Family history of malignant neoplasm of breast; Z90.721 Acquired absence of ovaries, unilateral
CPT/HCPCS: 88305; 88342; 88341; 77065; 19083; A4648

== ENCOUNTER → 2025-02-06 | Outpatient (CLI) | payer MEDICARE, OTHER ==
[2025-02-06 08:15] VITALS: BP 131/73; PULSE 70; RESP 16; TEMP 97.9
--- NOTE | 2025-02-06 09:17 | P.GSCN ---
History of Present Illness Consult date: 02/06/25 Reason for Consult: Left breast invasive ductal carcinoma Requesting physician: Padmini Rubi History of present illness: A 79-year-old female seen in consultation for Padmini Rubi regarding the left breast biopsy-proven invasive ductal carcinoma. She underwent a bilateral screening mammogram on 01 08 25. This revealed an irregular 3 cm mass with spiculated margins in the anterior one third of the upper outer left breast. She subsequently underwent an ultrasound of the left breast which confirmed a 3.2 cm x 3 cm lesion in the upper outer quadrant region of the left breast no suspicious lymph nodes were identified. An ultrasound-guided core biopsy was performed on 01-29-2025. Pathology revealed an invasive ductal carcinoma. This was grade 2. This is ER/SD positive HER2 positive. She does not feel any lumps masses or nodules of concern. She had not had a mammogram for about 10 years. She has not had any surgery on her breast. She is not complaining of any nipple discharge or skin changes. No recent trauma or infection in her breast. For some shortness of breath and was suggested she have a mammogram by the competitive intelligence analyst otherwise she is asymptomatic from any breast lesions. Caffeine: rare nicotine: none, her dad smoked at home until she was 15 chocolate: occasional BCP: 4 years hormones: none Note from 01 08 25 Padmini Rubi reviewed Family History: maternal aunt: breast cancer brother: of lung cancer at 38 a heavy smoker daughter: breast cancer Hormonal History: menarche: 14 M1, age at first : 26, breast fed: no menopause: 51 Surgical History: 2 knee replacements hysterectomy ? if took ovaries; done for bleeding 3 C sections; no cancer Medical History: short of breath/worked up for that now, not sure reason/sees Dr. Loredo from [place] Social History: nicotine: none alcohol: none drugs: none Review of Systems - Constitutional Denies fever, Denies weight loss - EENT Eyes: denies blurred vision Ears: bilateral: tinnitus, deny: decreased hearing Ears, nose, mouth and throat: Denies dysphagia - Breasts bilateral: as per HPI - Cardiovascular Cardiovascular Comment(s): SOB started within the last 3 years/had COVID/also had COVID vaccine Reports shortness of breath, Denies chest pain - Respiratory Denies cough, Denies 7 - Gastrointestinal Reports as per HPI - Genitourinary Genitourinary: Denies dysuria, Denies hematuria Menstruation: Reports post hysterectomy - Musculoskeletal Musculoskeleta Comment(s): fell [place] and right arm not able to lift numbness and tigling in her right arm and both legs and feet restless leg synderomen left leg with leg ulcers no ulcers now had physical therapy for the right arm, pinched nerves - Integumentary Reports as per HPI - Neurological Neurologic Comment(s): numbness hands and feet Reports headaches, Denies syncope - Psychiatric Reports as per HPI - Endocrine Reports as per HPI - Hematologic/Lymphatic Denies easy bleeding, Denies easy bruising - Allergic/Immunologic Reports seasonal allergies Past Medical History Past Medical History: Hyperlipidemia, Hypertension Additional Past Medical History / Comment(s): Diverticulitis History of Any Multi-Drug Resistant Organisms: None Reported Past Surgical History: Section, Joint Replacement Additional Past Surgical History / Comment(s): hysterectomy, bilat knee replacement, c-sectionx3 Past Anesthesia/Blood Transfusion Reactions: Postoperative Nausea & Vomiting (PONV) Past Psychological History: No Psychological Hx Reported Smoking Status: Never smoker Past Alcohol Use History: None Reported Past Drug Use History: None Reported - Past Family History Brother(s) Family Medical History: Cancer Additional Family Medical History / Comment(s): Lung Cancer Medications and Allergies Home Medications Medication Instructions Recorded Confirmed Type Aspirin EC [Ecotrin Low Dose] 81 mg PO HS 12/22/19 02/06/25 History Atorvastatin [Lipitor] 20 mg PO DAILY 12/22/19 02/06/25 History Black Seed Oil 650mg 650 mg PO DAILY 12/22/19 02/06/25 History Calcium/Magnesium/Zinc 1 tab PO DAILY 12/22/19 02/06/25 History [Nybsjox-Ljnvidsyk-Tdfj Tablet] Iron 27mg 27 mg PO HS 12/22/19 02/06/25 History Multivitamins, Thera [Multivitamin 1 tab PO DAILY 12/22/19 02/06/25 History (formulary)] NIFEdipine [Procardia XL] 90 mg PO DAILY 12/22/19 02/06/[address] [place]-3 Fatty Acids/Fish Oil [Fish 1 cap PO HS 12/22/19 02/06/25 History Oil 1,000 mg Softgel] Propranolol [Inderal] 40 mg PO BID 12/22/19 02/06/25 History Turmeric Root Extract [Turmeric] 500 mg PO HS 12/22/19 02/06/25 History Ubidecarenone [Co Q-10] 200 mg PO HS 12/22/19 02/06/25 History Vitamin B Complex 1 cap PO DAILY 12/22/19 02/06/25 History hydroCHLOROthiazide [Hydrodiuril] 12.5 mg PO DAILY 12/22/19 02/06/25 History Acetaminophen Tab [Tylenol] 500 mg PO Q6HR PRN tab 12/25/19 02/06/25 Rx Pantoprazole Sodium [Protonix] 40 mg PO BID #60 tablet. 12/25/19 02/06/25 Rx Allergies Allergy/AdvReac Type Severity Reaction Status Date / Time cephalexin Allergy Rash/Hives Verified 02/06/25 08:13 ciprofloxacin [From Cipro] Allergy Unknown Verified 02/06/25 08:13 metronidazole [From Flagyl] Allergy Unknown Verified 02/06/25 08:13 lisinopril [From Zestril] AdvReac Cough Verified 02/06/25 08:13 Bsqsagk-WAS-UwN Reductase AdvReac Itching/DRY Verified 02/06/25 08:13 Inhibitor SKIN [Iuebpwh-Snj-Xlb Reductase Inhibitor] Surgical - Exam Vital Signs Temp Pulse Resp BP Pulse Ox 97.9 F 70 16 131/73 98 02/06/25 08:13 02/06/25 08:13 02/06/25 08:13 02/06/25 08:13 02/06/25 08:13 - General no distress - Eyes normal ocular movement - ENT no hearing loss - Neck trachea midline - Respiratory normal respiratory effort, clear to auscultation - Cardiovascular Rhythm: regular Heart Sounds: normal: S1, S2 - Abdomen Abdomen: soft, non tender, no guarding, no rigid, no rebound - Integumentary normal turgor - Neurologic no disoriented, no combative - Musculoskeletal normal gait - Psychiatric oriented to time, oriented to person, oriented to place, speech is normal, memory intact Breast Exam: BRA: 44D Inspection: Ecchymosis central left breast related to recent biopsy Palpation: Right breast: Multi positional exam no discrete dominant masses or nodules of concern Right axilla: No adenopathy of concern Left breast: Multi positional exam increased nodularity in the 1 to 2 o'clock position approximately 3 cm in size, this may be related to hematoma versus the lesion that was biopsied otherwise no dominant masses or nodules of concern Left axilla: No adenopathy of concern Results Impression: Biopsy-proven left breast invasive ductal carcinoma T2 N0 M0 ER/SD HER2 positive G2 Recent onset of shortness of breath which is being evaluated Fall resulting in decreased mobility of right upper extremity Plan: Presentation of case at tumor board CC: Khloe Rubi
== END ==
LOC: WWCWWP 07:54
PROVIDERS: ATTEND Surgery
DX: C50.912 Malignant neoplasm of unspecified site of left female breast (principal); R06.02 Shortness of breath; W19.XXXA Unspecified fall, initial encounter; Z88.1 Allergy status to other antibiotic agents; Z74.09 Other reduced mobility; Z88.8 Allergy status to other drugs, medicaments and biological substances; Z17.31 Human epidermal growth factor receptor 2 positive status

== ENCOUNTER 2025-03-17 07:10 | Day surgery (SDC) | payer MEDICARE, OTHER ==
[2025-03-16 10:16] VITALS: BMI 35.4
[~2025-03-17 07:10] MED LIST: HYDROmorphone 0.5 MG/0.5 ML SYRINGE IVP PRN; METHYLENE BLUE 50 MG, DEXTROSE 5% IN WATER 50 ML MISCELLANE ONE; MIDAZOLAM 2 MG/2 ML VIAL IV PRN
[2025-03-17] MEDS: LACTATED RINGERS 1,000 ML IV ONE ×2 (07:33→08:01)
[2025-03-17] MEDS: LACTATED RINGERS 1,000 ML IV SCH (08:01)
[2025-03-17] MEDS: ALPRAZolam 0.25 MG TAB PO PRN (08:14)
[2025-03-17] MEDS: ACETAMINOPHEN TAB 500 MG TAB PO PRN (08:14)
[2025-03-17] MEDS: LIDOCAINE 1% INJ 10MG/ML (20 ML MDV) SQ ONE ×3 (08:50→11:34)
[2025-03-17] MEDS: SODIUM BICARB 8.4% 50 ML VIAL (1 MEQ/ML) MISCELLANE ONE (08:50)
[2025-03-17] MEDS: METHYLENE BLUE 50 MG/10 ML VIAL MISCELLANE ONE (08:53)
[2025-03-17] MEDS: DEXAMETHASONE SOD PHOSPHATE 4 MG/ML 1 ML VIAL IV ONE (09:40)
[2025-03-17] MEDS: ONDANSETRON 4 MG/2 ML VIAL IVP ONE (09:40)
[2025-03-17] MEDS: HEPARIN SODIUM,PORCINE 5,000 UNIT/ML 1 ML VIAL SQ PRN (09:40)
[2025-03-17] MEDS ORDERED: LIDOCAINE 1% INJ 10MG/ML (20 ML MDV) ONE (09:41)
[2025-03-17] MEDS ORDERED: diphenhydrAMINE 50 MG/ML 1 ML VIAL ONE (09:41)
[2025-03-17] MEDS ORDERED: PROPOFOL 10 MG/ML 20 ML VIAL IV ONE (09:41)
[2025-03-17] MEDS ORDERED: ePHEDrine 50 MG/ML 1 ML VIAL ONE (09:41)
[2025-03-17] MEDS ORDERED: HYDROmorphone (PF) 1 MG/ML ONE (09:41)
[2025-03-17] MEDS ORDERED: SUCCINYLCHOLINE CHLORIDE 200 MG/10 ML VIAL IV ONE (09:41)
[2025-03-17] MEDS ORDERED: fentaNYL (PF) 50 MCG/ML 2 ML AMP ONE (09:41)
[2025-03-17] MEDS ORDERED: GLYCOPYRROLATE 0.2 MG/ML 2 ML VIAL ONE (09:41)
[2025-03-17] MEDS: ceFAZolin 2 GM in DEXTROSE 5% IN WATER 50 ML IVPB PRN (09:44)
--- NOTE | 2025-03-17 09:56 | P.NAPBC ---
NAPBC Queries - NAPBC Queries Was patient's case review presented at [facility] tumor board? If no, comment.: Yes Was patient's pathology reviewed at [facility]? If no, comment.: Yes Was breast conservation surgery offered? If no, comment.: Yes Was sentinel node biopsy offered? If no, comment.: Yes Was diagnosis confirmed by percutaneous core biopsy? If no, comment.: Yes Is patient mastectomy patient?: No Was a preop referral to reconstructive surgeon offered?: No Clinical Stage: [id number]+Pr+her2+G2 left breast invasive ductal cancer
--- NOTE | 2025-03-17 10:49 | NM ---
EXAMINATION TYPE: NM sentinel node injection DATE OF EXAM: 03/17/2025 COMPARISON: NONE CLINICAL INDICATION: Female, 79 years old with history of Breast Cancer C50.412; left-sided breast ca ncer 1:00 position TECHNIQUE AND FINDINGS: The procedure of sentinel lymph node injection was explained to the patient. The benefits, alternatives, and risks were discussed. An informed consent was then obtained. Overlying skin is cleaned with sterile alcohol. Following this, 516 uCi Tc99m Tilmanocept was inject ed in the upper outer aspect of the left nipple intradermally. The patient tolerated the procedure well without any immediate complication. The patient was kept in the radiology department for short stay after the procedure and then taken to surgery for surgical p rocedure what is presumed intraoperative gamma probe will be used for sentinel lymph node detection. IMPRESSION: Left breast radiotracer injection for sentinel node localization as above. [facility], , 03/17/2025 10:46 AM
--- NOTE | 2025-03-17 11:41 | P.BCAON ---
Date of Procedure: 03/17/25 Preoperative Diagnosis: Invasive ductal carcinoma left breast Postoperative Diagnosis: Same Procedure(s) Performed: [place] node biopsy left axilla, left breast needle localization lumpectomy, left oncoplastic tissue transfer 72 cm Anesthesia: GETA Surgeon: Fay Upton Estimated Blood Loss (ml): 10 IV fluids (ml): 600 Pathology: other (Left axillary lymph node, breast tissue) Condition: stable Disposition: same day Indications for Procedure: Biopsy-proven left breast invasive ductal carcinoma Operative Findings: Palpable left breast mass Description of Procedure: Veronica is a 79-year-old female with a biopsy-proven left breast invasive ductal carcinoma. She was seen first in the radiology department where needle localization of the lesion was performed as well as injection of methylene blue at the site of the tumor. Periareolar radiotracer was injected for sentinel node biopsy. The patient was then taken to the operative suite. Following induction of anesthesia the neoprobe was used to interrogate the axilla. Radiotracer had traveled to the axilla. Therefore the left breast and axilla were prepped and draped in a sterile fashion. The area of the axilla was approached initially. Using the Coni counter the area with greatest radioactivity was identified. An incision was made and carried down to the radioactive lymph node. This was grasped using an Allis clamp. The tissue was removed. The 10-second count on the lymph node was 12,437. The background count was 30 at 10 seconds. The wound was well irrigated. After we are sure that hemostasis was attained the deep tissues were closed using 3-0 Vicryl suture. The subcutaneous tissue was closed using a running 3-0 Vicryl suture. This was followed by closure of the skin with a 4-0 Monocryl. The area of the breast was approached. An incision was made near the area of the wire local localization device. This was carried down to the hook of the wire. A area of blue dye was identified. This tissue was excised. The specimen was painted for orientation. Radiograph of the specimen revealed the area of concern had been removed. Additional tissue was removed posteriorly to the pectoralis muscle. Anteriorly skin was removed. New margins were obtained medial laterally superiorly and inferiorly. These were painted to identify the external surface of the new margins. Size of the cavity was 4 cm x 7 cm. The wound was well irrigated. After assuring that hemostasis was attained titanium clips were placed. Surgicel in powder form was placed. A superior pillar 8 x 4 cm was developed, and inferior pillar 3 x 4 cm was developed. Superior and inferior pillar were brought together and secured using 3-0 Vicryl suture. Total oncoplastic tissue transfer 72 cm. The subcutaneous tissue was evaluated for hemostasis. This tissue was closed using 3-0 Vicryl suture. The skin was closed using 4-0 Monocryl. The patient tolerated the procedure in stable condition. All instrument and sponge counts were correct at the end of the case. Again posteriorly dissection was onto the pectoralis muscle. Anteriorly skin was taken. New medial lateral superior and inferior margins were obtained. 20 cc of 1% lidocaine were injected into the area of the incisions. Surgical glue was placed. - Sentinal Node Biopsy Operation performed with curative intent: Yes Tracer(s) used in upfront surgery (non-neoadjuvant): radioactive tracer Tracer(s) used in the neoadjuvant setting: N/A All nodes present at end of dye-filled channel removed: N/A All significantly radioactive nodes were removed: Yes All palpably suspicious nodes were removed: Yes
--- NOTE | 2025-03-17 11:45 | P.DS ---
Providers Attending physician: Fay Upton Primary care physician: Lenin Campoverde Plan - Discharge Summary Discharge Rx Participant: No New Discharge Prescriptions: New oxyCODONE HCL [OxyIR] 5 mg PO Q6H PRN 3 Days #7 tab PRN Reason: pain No Action Turmeric Root Extract [Turmeric] 500 mg PO HS Calcium/Magnesium/Zinc [Txmzyur-Eertxwvft-Rxwf Tablet] 1 tab PO DAILY Black Seed Oil 650mg 650 mg PO DAILY Atorvastatin [Lipitor] 20 mg PO DAILY Propranolol [Inderal] 40 mg PO BID NIFEdipine [Procardia XL] 90 mg PO QAM Multivitamins, Thera [Multivitamin (formulary)] 1 tab PO DAILY hydroCHLOROthiazide [Hydrodiuril] 12.5 mg PO DAILY Vitamin B Complex 1 cap PO DAILY Ubidecarenone [Co Q-10] 200 mg PO HS Iron 27mg 27 mg PO HS Aspirin EC [Ecotrin Low Dose] 81 mg PO HS Acetaminophen Tab [Tylenol] 500 mg PO Q6HR PRN tab PRN Reason: Fever And/ Or Pain Discharge Medication List Aspirin EC [Ecotrin Low Dose] 81 mg PO HS 12/22/19 [History] Atorvastatin [Lipitor] 20 mg PO DAILY 12/22/19 [History] Black Seed Oil 650mg 650 mg PO DAILY 12/22/19 [History] Calcium/Magnesium/Zinc [Dyqwwhs-Xucrdvdku-Yhaf Tablet] 1 tab PO DAILY 12/22/19 [History] Iron 27mg 27 mg PO HS 12/22/19 [History] Multivitamins, Thera [Multivitamin (formulary)] 1 tab PO DAILY 12/22/19 [History] NIFEdipine [Procardia XL] 90 mg PO QAM 12/22/19 [History] Propranolol [Inderal] 40 mg PO BID 12/22/19 [History] Turmeric Root Extract [Turmeric] 500 mg PO HS 12/22/19 [History] Ubidecarenone [Co Q-10] 200 mg PO HS 12/22/19 [History] Vitamin B Complex 1 cap PO DAILY 12/22/19 [History] hydroCHLOROthiazide [Hydrodiuril] 12.5 mg PO DAILY 12/22/19 [History] Acetaminophen Tab [Tylenol] 500 mg PO Q6HR PRN tab 12/25/19 [Rx] oxyCODONE HCL [OxyIR] 5 mg PO Q6H PRN 3 Days #7 tab 03/17/25 [Rx] Follow up Appointment(s)/Referral(s): Fay Upton MD [STAFF PHYSICIAN] - 3 Days Activity/Diet/Wound Care/Special Instructions: Do not drive for 24 hours from discharge or if taking narcotic pain medicine May shower after 48 hours Wear bra at all times Discharge Disposition: HOME SELF-CARE
[2025-03-17 12:18] VITALS: TEMP 97.2
[2025-03-17 14:25] VITALS: BP 137/74; PULSE 67; RESP 16
--- NOTE | 2025-03-24 11:22 | MM ---
Reason for Exam: Post Procedure Mammogram. Last screening mammogram was performed 2 month(s) ago. Patient History: Menarche at age 13. First Full-Term at age 24. Left ovary removed at age 54. Right ovary removed at age 54. Hysterectomy at age 54. Postmenopausal. Breast cancer, left, age 79. 01/29/2025, Malignant US biopsy breast VAD LT on the left side. Maternal aunt had breast cancer, age 70. Prior Study Comparison: 07/09/2017 Bilateral Screening Mammogram, [facility]. 01/08/2025 Bilateral MG 3D screening mammo w/cad, Unknown. 01/29/2025 Left MG diagnostic mammo LT wo CAD., [facility]. Tissue Density: Left: There are scattered areas of fibroglandular density. Pathology Description: Location: 1 o'clock. Needle Type: 5 cm [place] The procedure of needle localization with wire placement and than surgical excision was explained to the patient. Benefits, alternatives, and risks were discussed. An informed consent was then obtained. Ultrasound guidance was chosen. Surgeon requested placement via superior approach. The overlying skin was prepped and draped in usual sterile fashion. Lidocaine buffered with bicarbonate was used as anesthetic into the skin and subcutaneous tissue up to the level of area of concern. A 5 cm needle was used. It was placed via ultrasound guidance. At this point, ordering surgeon is present to inject methylene blue as per her request at the periphery of the mass/neoplasm. At this point, wire was placed through the mass/neoplasm and the needle was withdrawn. The wire was fixed to patient's skin. Postprocedure mammogram is performed as per surgeon request. This shows wire through the mass. Images were reviewed with the surgeon. The patient tolerated the procedure well without any immediate complication. The patient was kept in the radiology department for short stay after the procedure and then taken to surgery for surgical excision. Targeted mass and biopsy clip and wire are identified in specimen mammogram. The patient was kept in hospital for short stay after the procedure and then discharged home in stable condition. Impression: Successful, uncomplicated needle localization with wire placement and surgical excision of known neoplasm in the left breast, full pathology results to follow. [facility], , 03/17/2025 3:04 PM. Pathology Results: Result: Malignant, Invasive ductal carcinoma. Pathology and radiology were reviewed. Findings are concordant. A. LEFT BREAST, LUMPECTOMY: Invasive poorly differentiated ductal carcinoma (Grade 3) and focal high grade ductal carcinoma (DCIS), margins negative for invasive malignancy or DCIS. See Surgical Pathology Cancer Case Summary. B. LEFT SENTINEL LYMPH NODE: Two lymph nodes negative for metastasis. LIZA immunostain performed on blocks B1, B2, B3, B4, and B5 is confirmatory (control appropriate). C. EXTERNAL SURFACE NEW POSTERIOR MARGIN: Benign breast tissue with fibrocystic changes. D. LEFT BREAST, NEW LATERAL MARGIN: Benign breast tissue with fibrocystic changes. E. 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 New inferior margin negative for DCIS. DCIS measures at least 10 mm from new inferior margin. F. EXTERNAL SURFACE, NEW SUPERIOR MARGIN: Benign breast tissue with fibrocystic changes. G. NEW MEDIAL MARGIN: Benign breast tissue with fibrocystic changes. H. NEW ANTERIOR MARGIN: Unremarkable benign skin. Overall Assessment: Malignant Assessment: MG diagnostic mammo LT wo CAD. - Left: Known biopsy proven malignancy, BI-RAD 6. Management: Surgical Consultation of the left breast. Electronically signed and approved by: Jim Elizabeth M.D.
== END 2025-03-17 15:09 | disposition home or self-care (01) ==
LOC: OR 07:10
PROVIDERS: ATTEND Surgery
DX: C50.412 Malignant neoplasm of upper-outer quadrant of left female breast (principal); N60.12 Diffuse cystic mastopathy of left breast; J44.9 Chronic obstructive pulmonary disease, unspecified; I27.0 Primary pulmonary hypertension; E78.5 Hyperlipidemia, unspecified; Z90.12 Acquired absence of left breast and nipple; Z88.1 Allergy status to other antibiotic agents; Z79.02 Long term (current) use of antithrombotics/antiplatelets; Z79.82 Long term (current) use of aspirin; Z79.899 Other long term (current) drug therapy
CPT/HCPCS: 88342; 88307; 77065; 76098; 19285; 19301; 38525; 14301; 14302; 38792; C1819; A9520; J0330; J1200; J1644; J1100; J0690; J2405; J2003; J3010; J1171; J2704; Q9968; J1596

== ENCOUNTER → 2025-03-20 | Outpatient (CLI) | payer MEDICARE, OTHER ==
[2025-03-20 08:36] VITALS: BP 129/82; PULSE 66; RESP 16; TEMP 98.7
== END ==
LOC: WWCWWP 08:07
PROVIDERS: ATTEND Surgery
DX: C50.412 Malignant neoplasm of upper-outer quadrant of left female breast (principal); Z98.890 Other specified postprocedural states; Z88.8 Allergy status to other drugs, medicaments and biological substances; Z88.1 Allergy status to other antibiotic agents

== ENCOUNTER → 2025-04-21 | Outpatient (CLI) | payer MEDICARE, OTHER ==
[2025-04-21 08:12] VITALS: BP 150/80; PULSE 63; RESP 17; TEMP 98.1
--- NOTE | 2025-04-21 12:01 | P.BCPO ---
Progress Note - Text Progress Note Date: 04/21/25 The patient on 03 17 25 underwent a left breast lumpectomy and sentinel node biopsy. The lesion was noted to be 3 cm. All margins were negative. 2 lymph nodes were removed and both were negative. The patient postoperatively has done well. Examination: Incision breast and axilla clean and dry Impression: Patient doing well postoperative Appointment medical oncology Appointment radiation oncology Follow-up here in 4 months Post Op Education - Post Op Education Post Op Education Provided Date: 04/21/25 Path Report - Was patient given path report? Path Report Date Given: 04/21/25
== END ==
LOC: WWCWWP 08:00
PROVIDERS: ATTEND Surgery
DX: Z48.89 Encounter for other specified surgical aftercare (principal); Z98.890 Other specified postprocedural states